=== PATIENT | female | born 1980 | race Caucasian/White ===

== ENCOUNTER 2016-08-05 12:19 | Day surgery (SDC) | payer BC ==
[~2016-08-05] VITALS: Ht 160 cm; Wt 71.0 kg
[~2016-08-05 12:19] MED LIST: BUPIVACAINE/PF 0.5% ONE
[2016-08-05 13:20] VITALS: BP 151/106
[2016-08-05 13:25] LABS: HCG UR OBC PASS
[2016-08-05] MEDS ORDERED: LIDOCAINE 1%, 2ML ONE (13:33)
[2016-08-05] MEDS ORDERED: MIDAZOLAM 1 MG/ML, 2ML ONE ×2 (13:36→14:21)
[2016-08-05] MEDS ORDERED: LEVO100T5 PO (13:36)
[2016-08-05] MEDS ORDERED: FENTANYL PF 100 MCG/2ML ONE (13:36)
[2016-08-05] MEDS ORDERED: SUMA100T3 PO (13:36)
[2016-08-05] MEDS ORDERED: LACTATED RINGERS 1,000 ML IV SCH (14:04)
[2016-08-05] MEDS ORDERED: PROPOFOL 10 MG/ML, 20ML ONE (14:06)
[2016-08-05] MEDS ORDERED: KETOROLAC 30 MG/1 ML ONE (14:06)
[2016-08-05] MEDS ORDERED: DEXAMETHASONE 4 MG/ML, 1ML ONE (14:06)
[2016-08-05] MEDS ORDERED: ONDANSETRON 2MG/ML, 2ML ONE (14:06)
[2016-08-05] MEDS ORDERED: FENTANYL PF 250 MCG/5ML ONE (14:16)
[2016-08-05] MEDS ORDERED: LIDOCAINE 1%, 2ML SQ PRN (14:30)
[2016-08-05] MEDS ORDERED: ONDANSETRON 2MG/ML, 2ML IVPush PRN (15:00)
[2016-08-05] MEDS ORDERED: LABETALOL 5MG/ML, 20ML IV PRN (15:00)
[2016-08-05] MEDS ORDERED: ACETAMINOPHEN 325 MG TABLET PO PRN (15:00)
[2016-08-05] MEDS ORDERED: FENTANYL PF 100 MCG/2ML IV PRN (15:00)
[2016-08-05] MEDS ORDERED: MIDAZOLAM 1 MG/ML, 2ML IV PRN (15:00)
[2016-08-05] MEDS ORDERED: MEPERIDINE/PF 25MG/0.5ML IVPush PRN (15:00)
[2016-08-05] MEDS ORDERED: PROMETHAZINE 25 MG/ML, 1ML IV PRN (15:00)
[2016-08-05] MEDS ORDERED: hydrALAzine 20 MG/ML, 1ML IV PRN (15:00)
[2016-08-05] MEDS ORDERED: HYDROmorphone 1 MG/ML, 1ML IV PRN (15:00)
[2016-08-05] MEDS ORDERED: ALBUTEROL/IPRATROPIUM 2.5MG/0.5MG, 3 ML NPPB PRN (15:00)
[2016-08-05] MEDS ORDERED: OXYcodone 5 MG/5 ML ORAL.SOL UDC PO PRN (15:00)
[2016-08-05] MEDS ORDERED: OXYcodone 5 MG/5 ML ORAL.SOL UDC ONE (15:11)
[2016-08-05] MEDS ORDERED: ACETAMINOPHEN 650 MG/20.3 ML UDC ONE (15:11)
[2016-08-05] MEDS ORDERED: PLEASE ENTER ALLERGIES MC SCH ×2 (16:00)
== END 2016-08-05 16:40 | disposition home or self-care (01) ==
LOC: OUT 12:19
PROVIDERS: ATTEND Orthopaedic Surgery
DX: S92.352A Displaced fracture of fifth metatarsal bone, left foot, initial encounter for closed fracture (principal); X58.XXXA Exposure to other specified factors, initial encounter; Y93.9 Activity, unspecified; Y92.9 Unspecified place or not applicable; Y99.9 Unspecified external cause status; Z86.39 Personal history of other endocrine, nutritional and metabolic disease
CPT/HCPCS: 28322; 73620; 76000; 81025; C1713; C1769; J1100; J1885; J2250; J2405; J2704; J3010; J3490; J7120